=== PATIENT | female | born 1955 | race Caucasian/White ===

== ENCOUNTER → 2016-08-29 | Outpatient (CLI) | payer BC ==
--- NOTE | 2016-09-04 15:42 | ECHO ---
The echocardiogram report can be seen in this patient's EMR in the Reports section. DESIREE
== END ==
LOC: EDSEX 11:22 → MW.US 11:22
PROVIDERS: ATTEND Internal Medicine
DX: R00.2 Palpitations (principal)
CPT/HCPCS: 93306